=== PATIENT | male | born 1985 | race Caucasian/White ===

== ENCOUNTER → 2022-09-01 12:45 | Outpatient (BNVA) | payer MEDICARE, MEDICAID, SELFPAY | PROVIDERS: Family Provider Internal Medicine; PCP Internal Medicine; Visit Provider Specialist | DX: G40.B09 Juvenile myoclonic epilepsy, not intractable, without status epilepticus (principal); F31.9 Bipolar disorder, unspecified | CPT/HCPCS: 99213 ==

== ENCOUNTER → 2023-07-11 10:43 | Outpatient (BNVA) | payer MEDICARE, MEDICAID, SELFPAY | PROVIDERS: Family Provider Internal Medicine; PCP Internal Medicine; Visit Provider Specialist | DX: G40.B09 Juvenile myoclonic epilepsy, not intractable, without status epilepticus (principal); F31.9 Bipolar disorder, unspecified | CPT/HCPCS: 99214 ==

== ENCOUNTER → 2024-08-16 13:21 | Outpatient (BNVA) | payer MEDICARE, MEDICAID, SELFPAY | PROVIDERS: Family Provider Internal Medicine; PCP Internal Medicine; Visit Provider Specialist | DX: G40.B09 Juvenile myoclonic epilepsy, not intractable, without status epilepticus (principal); G40.B19 Juvenile myoclonic epilepsy, intractable, without status epilepticus; F31.9 Bipolar disorder, unspecified | CPT/HCPCS: 99213 ==